=== PATIENT | male | born 1985 | race Caucasian/White ===

== ENCOUNTER 2023-12-21 11:57 | Observation (INO) | payer OTHER ==
[~2023-12-21] VITALS: Ht 180.3 cm; Wt 101.8 kg
[~2023-12-21 11:57] MED LIST: NORVASC2.5 MG PO; TOPAMAX15 MG PO; TOPROL XL 50MG50 MG
[2023-12-21] MEDS ORDERED: Morphine 4 MG/ML VIAL IV ONE (12:30)
[2023-12-21] MEDS ORDERED: NS 1,000 ML IV ONE ×3 (12:30→15:00)
[2023-12-21] MEDS ORDERED: Ondansetron 4 MG/2 ML VIAL IV ONE (12:30)
[2023-12-21 12:38] LABS: BASO % 0.3 % (0.0-2.0); EOS % 0.2 % (0.0-4.0); GRAN # 10.8 K/mm3 (1.4-6.5); GRAN % 88.9 % (42.2-75.2); HEMATOCRIT 40.8 % (42.0-52.0); HEMOGLOBIN 14.3 g/dl (13.5-18.0); LYMPH # 0.6 K/mm3 (1.2-3.4); LYMPH % 4.5 % (20.0-51.0); MEAN CELL VOLUME 82 fl (80.0-100.0); MEAN CORPUSCULAR HEMOGLOBIN 29 pg (27-31); MEAN CORPUSCULAR HGB CONC 35 g/dl (33.0-37.0); MEAN PLATELET VOLUME 10.4 fl (7.4-10.4); MONO # 0.7 K/mm3 (0.1-0.6); MONO % 5.8 % (1.7-9.3); PLATELET COUNT 369 K/mm3 (130-400); RED BLOOD COUNT 4.97 M/mm3 (4.20-5.60); REDCELL DISTRIBUTION WIDTH-CV 12.5 % (11.5-14.5)
[2023-12-21 12:54] LABS: BILIRUBIN,TOTAL 0.7 mg/dL (0.2-1.2); CREATININE, serum 1.34 mg/dL (0.72-1.25); TOTAL PROTEIN 7.8 g/dl (6.2-8.1)
[2023-12-21 12:58] LABS: POTASSIUM 2.6 mEq/L (3.5-4.5)
[2023-12-21] MEDS ORDERED: Iohexol 300 - 100 ML VIAL IV ONE (13:02)
[2023-12-21] MEDS ORDERED: NS 100 ML IV ONE (13:02)
[2023-12-21 13:58] LABS: PH 7.5 (5.0-8.5); URINE APPEARANCE CLEAR (CLEAR/HAZY); URINE BLOOD NEGATIVE (NEGATIVE); URINE COLOR YELLOW (YELLOW); URINE GLUCOSE NEGATIVE (NEGATIVE); URINE KETONE NEGATIVE (NEGATIVE); URINE NITRATE NEGATIVE (NEGATIVE); URINE PROTEIN(semi-quant) NEGATIVE (NEGATIVE)
[2023-12-21 14:07] LABS: COLLECTION METHOD CLEAN CATCH
--- NOTE | 2023-12-21 15:30 | NUR ---
PATIENT ARRIVED FORM ER AWAKE ALERT AND ORIENTED. VSS. .CALLL LIGHT IWTHIN REACH. FALL PRECAUTIONS IN PLACE.
[2023-12-21] MEDS ORDERED: ADDERALL30 MG PO (15:42)
[2023-12-21] MEDS ORDERED: Heparin 5,000 UNITS/ML 1 ML VIAL SQ SCH (16:00)
[2023-12-21] MEDS ORDERED: Multivitamin TAB PO SCH (16:16)
[2023-12-21] MEDS ORDERED: Zinc Sulfate 220 MG CAP PO SCH (16:18)
[2023-12-21 16:20] VITALS: BP 108/68; PULSE 90; TEMP 97.9
[2023-12-21] MEDS ORDERED: PHENERGAN 25 TA25 MG PO (16:21)
[2023-12-21] MEDS ORDERED: ZOFRAN8 MG PO (16:21)
[2023-12-21] MEDS ORDERED: RISPERDAL 1M1 MG/TAB PO (16:23)
[2023-12-21] MEDS ORDERED: TEGRETOL 2200 MG/TA1 PO (16:24)
[2023-12-21] MEDS ORDERED: TOPAMAX50 MG PO (16:25)
[2023-12-21] MEDS ORDERED: Ondansetron 4 MG/2 ML VIAL IV PRN ×2 (16:30→17:00)
[2023-12-21] MEDS ORDERED: Acetaminophen 325 MG TAB PO PRN ×2 (16:30→17:00)
[2023-12-21] MEDS ORDERED: *Potassium Replacement Protocol MC SCH (17:00)
[2023-12-21] MEDS ORDERED: NS 1,000 ML IV SCH (17:00)
[2023-12-21 17:11] VITALS: BP_SYST 108
[2023-12-21] MEDS ORDERED: Insulin Lispro (HumaLOG) SQ SCH (18:00)
[2023-12-21 20:42] VITALS: BP 107/70; PULSE 87; TEMP 98.4
[2023-12-21 20:53] VITALS: BP_SYST 107
[2023-12-21 23:34] VITALS: BP 125/76; PULSE 100; PULSE 91; TEMP 98.1
[2023-12-22] VITALS (7 sets, daily range): BP systolic 114–126; BP diastolic 74–81; PULSE 95–99; TEMP 98–98.2
[2023-12-22 08:27] LABS: BASO % 0.6 % (0.0-2.0); EOS # 0.1 K/mm3 (0.0-0.7); EOS % 2.5 % (0.0-4.0); GRAN # 2.7 K/mm3 (1.4-6.5); LYMPH # 1.5 K/mm3 (1.2-3.4); LYMPH % 28.5 % (20.0-51.0); MEAN CELL VOLUME 81 fl (80.0-100.0); MEAN CORPUSCULAR HGB CONC 35 g/dl (33.0-37.0); MEAN PLATELET VOLUME 10.1 fl (7.4-10.4); MONO # 0.9 K/mm3 (0.1-0.6); MONO % 16.4 % (1.7-9.3); PLATELET COUNT 304 K/mm3 (130-400); RED BLOOD COUNT 4.28 M/mm3 (4.20-5.60); REDCELL DISTRIBUTION WIDTH-CV 12.6 % (11.5-14.5)
[2023-12-22 08:28] LABS: HEMATOCRIT 34.6 % (42.0-52.0); HEMOGLOBIN 12.1 g/dl (13.5-18.0); MEAN CORPUSCULAR HEMOGLOBIN 28 pg (27-31)
--- NOTE | 2023-12-22 08:55 | NUR ---
SW met with patient to complete initial assessment for discharge planning. Patient verified that he lives in [place] with his Lucila Merrill ([phone]). Patient sees Dr. Fritz Gamboa as his PCP and uses [facility] pharmacy. Patient denies having a DPOA or using any DME. Patient reports to be independent with all activities. Plan is to return home when medically stable Discharge plan: Home
[2023-12-22 09:00] LABS: ALBUMIN 3.2 g/dL (3.5-5.0); CALCIUM 8.6 mg/dL (8.4-10.2); CREATININE, serum 0.73 mg/dL (0.72-1.25); MAGNESIUM 1.9 mg/dL (1.6-2.6); PHOSPHOROUS 2.1 mg/dL (2.3-4.7); POTASSIUM 3.1 mEq/L (3.5-4.5)
[2023-12-22] MEDS ORDERED: Potassium Bicarbonate/Citrate 20 MEQ Effervescent TAB PO SCH (09:30)
--- NOTE | 2023-12-22 09:47 | NUR ---
SW met with patient's in room to complete initial assessment for discharge planning. Patient sleeping soundly during visit. This patient is known to SW from previous admissions. /[facility] ([phone]) verified that they live outside [facility], patient sees Dr. Joesph Fernandez as his PCP and uses [facility]. Patient receives tube feedings and has a CPAP and all DME at home necessary to care for him. Patient is total care due to MS, with being caregiver, his sons helping at times and paid caregivers to assist in patient care. Patient has listed his as DPOA with his two sons Cliff and Brock as alternate DPOA. Plan at this time is home. Discharge plan: Home
[2023-12-22] MEDS ORDERED: carBAMazepine 200 MG TAB PO SCH (10:09)
[2023-12-22] MEDS ORDERED: Topiramate 25 MG TAB PO SCH (10:09)
[2023-12-22] MEDS ORDERED: Ondansetron 4 MG TAB PO PRN (10:15)
[2023-12-22] MEDS ORDERED: Promethazine 25 MG TAB PO PRN (10:15)
[2023-12-22] MEDS ORDERED: Ondansetron 4 MG/2 ML VIAL IV ONE (10:45)
[2023-12-22] MEDS ORDERED: DUO-KAPS1 CAP PO (13:24)
[2023-12-22] MEDS ORDERED: ZOFRAN ODT4 MG PO (13:25)
[2023-12-22] MEDS ORDERED: PHARMASSURE ZIN50 MG PO (13:25)
[2023-12-22] MEDS ORDERED: risperiDONE 1 MG TAB PO SCH (14:00)
--- NOTE | 2023-12-22 14:45 | NUR ---
HOSPITALIST INFORMED PATIENT HAD A YOGURT AND BANANA FOR BREAKFAST, AMD 1 BAKED POTATOE FOR LUNCH. PATIENT REQUESTING DISCHARGE.
--- NOTE | 2023-12-22 15:06 | NUR ---
PATIENT GIVEN DISCHARGE INSTRUCTIONS AND EDUCATION . IV AND TELE REVMOED. PATIENT VERABLIZED UNDERSTANDING TO FOLLOW UP APT. PATIENT GIVEN CAT SWAMPER ABDULLAHI TO CALL TOMORROW NONE AVAILABLE AT THIS TIME FOR PATIENTS QUESTIONS. PATIENT ESCORTED TOER ENTRANCE BY PCT WHERE HE LEFT IN STABLE CONDITION WITH HIS .
== END 2023-12-22 15:18 | disposition home or self-care (01) ==
LOC: COL.ER 11:57 → MEDICAL 15:12
PROVIDERS: Personal Emergency Response Attendant; ADMIT Internal Medicine
DX: R43.8 Other disturbances of smell and taste (principal); I10 Essential (primary) hypertension; I95.9 Hypotension, unspecified; E87.6 Hypokalemia; F31.9 Bipolar disorder, unspecified; F41.9 Anxiety disorder, unspecified; E66.9 Obesity, unspecified; Z79.899 Other long term (current) drug therapy
CPT/HCPCS: G0378; J1644; J2405; J7030; Q9967